=== PATIENT | female | born 2000 | race Caucasian/White ===

== ENCOUNTER 2024-03-11 15:02 | Emergency (ER) | payer BC, SELFPAY ==
[2024-03-11 15:04] VITALS: BP 153/104
[2024-03-11 15:26] LABS: % Basophils 0.7 % (0-2); % Eosinophils 6.6 % (0-6); % Immature Granulocytes 0.3 % (0-0.5); % Lymphocytes 25.1 % (20.5-51.1); % Monocytes 9.9 % (1.7-9.3); % Neutrophils 57.4 % (42.2-75.2); Absolute Basophils 0.1 10^3/uL (0-0.2); Absolute Eosinophils 0.5 10^3/uL (0-0.7); Absolute Lymphocytes 1.9 10^3/uL (1.2-3.4); Absolute Monocytes 0.8 10^3/uL (0.1-0.6); Absolute Neutrophils 4.4 10^3/uL (1.4-6.5); Hematocrit 40.4 % (37.0-47.0); Hemoglobin 13.2 g/dL (12.0-16.0); Mean Corp Hgb Conc. 32.7 g/dL (33.0-37.0); Mean Corpuscular Hgb 26.7 pg (27.0-31.0); Mean Corpuscular Volume 81.8 fL (81.0-99.0); Mean Platelet Volume 8.2 fL (7.4-10.4); Nucleated Red Blood Cells % 0 %; Platelet Count 356 10^3/uL (130-400); Red Blood Cell Count 4.94 10^6/uL (4.20-5.40); White Blood Cell Count 7.7 10^3/uL (4.8-10.8)
[2024-03-11 15:37] LABS: HCG, Serum Qualitative Screen Negative
[2024-03-11 15:38] LABS: ALT (SGPT) 22 U/L (0-35); AST (SGOT) 21 U/L (14-36); Albumin 4.5 g/dl (3.5-5.0); Alkaline Phosphatase 76 U/L (38-126); Blood Urea Nitrogen 16 mg/dl (7-17); Calcium 9.7 mg/dl (8.4-10.2); Carbon Dioxide 25 mmol/L (22-30); Chloride 101 mmol/L (98-107); Glucose 91 mg/dl (70-99); Lipase 144 U/L (23-300); Potassium 4.6 mmol/L (3.5-5.1); Sodium 134 mmol/L (135-145); Total Bilirubin 0.2 mg/dl (0.2-1.3); Total Protein 7.8 g/dl (6.3-8.2); eGFR > 60.00
--- NOTE | 2024-03-11 19:14 | ED.GENMED ---
History of Present Illness
General
Chief Complaint: Abdominal Symptoms
Source: patient
Exam Limitations: none
Time Seen by Provider: 03/11/24 18:41
History of Present Illness
History of Present Illness:
This is a 23 year old female that comes in with c/o abd cramping, nausea and diarrhea. States that this started about a week ago. States that 3 days ago he stools started to be bloody. State that this is bright red blood. States that she has also
had some reflux for the past week. States that she is nauseated and has diarrhea about 5 times in a day. Denies any fever, chills, chest pain, SOB, vomiting, headache, dizziness, urinary burning.
Past History
Past History
ED Past Medical History: None; Negative Asthma, HTN, Hypercholesterolemia or NIDDM
ED Past Surgical History: Other (Breast reduction)
Social History
Tobacco: Non-smoker
Alcohol: None
Personal: Single
Living: with family
Employment: Employed
Review of Systems
Review of Systems
All Other Systems: ROS reviewed and negative except as documented in HPI and ROS
Constitutional: Reports no symptoms; Denies fever or chills
EENT: Reports no symptoms
Respiratory: Reports no symptoms; Denies cough or trouble breathing
Cardiac: Reports no symptoms; Denies chest pain
ABD/GI: Reports abdominal pain, nausea, diarrhea and bloody stools; Denies vomiting
: Reports no symptoms; Denies dysuria, frequency or urgency
Musculoskeletal: Reports no symptoms
Skin: Reports no symptoms
Neurological: Reports no symptoms; Denies dizzy or headache
Psychiatric: Reports no symptoms
Phy Exam
General Physical Exam
General Presentation: well appearing and no apparent distress
General age: appears stated age
General Skin: warm and dry
General Habitus: normal
General Mental: alert
General Hydration: appears well hydrated
ENT Exam
ENT Exam: TM's normal, pharynx normal and neck supple
Eye Exam
Eye Exam: EOMI
Cardiovascular Exam
Cardiovascular Exam: regular rate/rhythm, no edema, no murmur and normal peripheral pulses
Pulmonary Exam
Pulmonary Exam: lungs clear, no respiratory distress, no rales, chest non tender, no crackles, no rhonchi, no wheezing and no cough
Gastrointestinal Exam
Gastrointestinal Exam: normal bowel sounds, soft, no organomegaly, no pulsatile mass, non distended and tender (Generalized tenderness with palpation)
Musculoskeletal Exam
Musculoskeletal Exam: full ROM and no edema
Skin Exam
Skin Exam: normal color, warm/dry, no rash and no petechia
Psychiatric Exam
Psychiatric Exam: normal mood/affect
Course
Orders/Labs/Results
Orders:
Orders
03/11/24 15:07
Test Result ONCE
03/11/24 15:11
Complete Blood Count/With Diff Urgent
Comprehensive Metabolic Panel Urgent
HCG, Serum Qualitative Screen Urgent
Lipase Urgent
03/11/24 19:13
CT Abd/pelvis W Iv Cont Urgent
Comment:
Reason For Exam: bloody stool abd discomfort.
03/11/24 19:14
0.9% Sodium Chloride 500 ml [Nss] 500 ml IV BOLUS
Ondansetron Injectable [Zofran] 4 mg IV NOW STA
03/11/24 19:15
Pantoprazole [Protonix IV] 40 mg IV NOW STA
Abnormal Lab Results
03/11/24
15:11
MCH 26.7 L pg
(27.0-31.0)
MCHC 32.7 L g/dL
(33.0-37.0)
Absolute Monos (auto) 0.8 H 10^3/uL
(0.1-0.6)
Monocytes % 9.9 H %
(1.7-9.3)
Eosinophils % 6.6 H %
(0-6)
Sodium 134 L mmol/L
(135-145)
03/11/24 15:11
03/11/24 15:11
Sodium slighlty low. Lipase normal at 144, HCG negative.
Vital Signs
Initial and Last Documented VS:
Initial Vital Signs
Temp Pulse Resp BP Pulse Ox
98.6 F 110 20 153/104 99
03/11/24 15:04 03/11/24 15:04 03/11/24 15:04 03/11/24 15:04 03/11/24 15:04
Last Documented Vital Signs
Temp Pulse Resp BP Pulse Ox
98.3 F 96 18 125/72 97
03/11/24 20:10 03/11/24 20:10 03/11/24 20:10 03/11/24 20:10 03/11/24 20:10
MDM/Problems Addressed
Differential Diagnosis Includes:
Colitis,
MDM/Problems Addressed:
This is a 23 year old female that comes in with c/o abd cramping and diarrhea. States that this has been going on for week and then about 3 days ago she started with bloody stool.
WIll get labs and CT scan. Will medicate for nausea, Reflux.
Back into see patient. Explained that she does have colitis. Will start patient on antibiotics. Patient has a PCP appointment on Thursday. Patient may also need to see the Gi Specialist for further evaluation. Patient to return with any concerns.
Chronic conditions affecting care:
NA
Acute Exacerbation and/or Progression of Chronic Illness:
NA
*Radiology
Radiology exam reviewed: radiology read reviewed (CT-There is colonic wall thickening with mucoal hyperenhancement most pronounced in the transverse colon, consistent with colitis. Normal appendix. )
*Pulse Oximetry
Patient hypoxic: no
*EKG
Interpreted by ED Provider?: NA
Rate: EKG- N/A
*Child Caregiver Interpretation
Rate: Child Caregiver- N/A
*Critical Care Note
Total Time (30-74mins, 75-104mins- exclusive of procedures): Not Applicable
ED Attending Note
-
Portions of this chart may have been created with voice recognition software.� Occasional wrong word or��sound alike� substitutions may have occurred due to the inherent limitations of voice recognition software.
Discharge Plan
Departure
Patient Disposition: Home (Routine Discharge)
Date of Disposition: 03/11/24
Time of Disposition: 21:30
Patient with high blood pressure during this ER visit?: No
Condition: Good
Covid-19: Not Applicable
Discharge Problem:
Colitis
Instructions: Colitis - Discharge instructions
Prescriptions:
New
amoxicillin-pot clavulanate 875-125 mg tablet
1 tab PO BID Qty: 19 0RF
No Action
prednisone 20 MG tablet
20 mg PO BID Qty: 6 0RF
oseltamivir [Tamiflu] 75 MG capsule
75 mg PO BID Qty: 10 0RF
Referrals:
Laureen Lux DO [Family Provider] - 03/14/24
Activity Restrictions/Additional Instructions:
As discussed, your blood work is normal. Your CT shows that you have Colitis. You have been started on an antibiotic and given your first dose here. A prescription has been sent to your pharmacy. Please take as directed. Follow up with the family
doctor as scheduled. IF YOU HAVE INCREASED OR CHANGING PAIN, OR YOU HAVE ANY OTHER CONCERNS PLEASE RETURN TO THE EMERGENCY ROOM.
Interventions
Interventions:
*Risk Screen - Suicide Last Done: 03/11/24 15:04
*General Assessment Last Done: 03/11/24 19:44
*Neglect/Abuse Screening Last Done: 03/11/24 19:44
*ED COVID-19 Vaccine History Last Done: 03/11/24 19:44
TK-Bkguwq-Ycjgogqgvf Assessment Last Done: 03/11/24 19:44
Discharge Date and Time
Print Language: BENINESE
[2024-03-11] MEDS: ZOFRAN 4 MG IV (19:31)
[2024-03-11] MEDS: PROTONIX IV 40 MG IV (19:31)
[2024-03-11] MEDS: NSS 500 IV (19:31)
[2024-03-11 20:10] VITALS: BP 125/72
[2024-03-11] MEDS: AUGMENTIN 875 MG/125 MG 1 TABLET PO (21:40)
== END 2024-03-11 21:59 | disposition home or self-care (01) ==
LOC: EMR 15:02
PROVIDERS: Emergency Medicine; EMERGENCY PHYSICIAN Emergency Medicine; FAMILY PHYSICIAN Family Medicine
DX: K52.9 Noninfective gastroenteritis and colitis, unspecified (principal)
CPT/HCPCS: 99285; 96374; 96375; 96361; 74177; 80053; 83690; 84703; 85025; Q9967

== ENCOUNTER 2024-03-24 06:25 | Day surgery (SDC) | payer BC, SELFPAY | END 2024-03-24 09:47 | LOC: GI 06:25 | PROVIDERS: ATTENDING PHYSICIAN Internal Medicine Gastroenterology | DX: R93.3 Abnormal findings on diagnostic imaging of other parts of digestive tract (principal); K52.9 Noninfective gastroenteritis and colitis, unspecified; K64.8 Other hemorrhoids; K62.5 Hemorrhage of anus and rectum; D12.0 Benign neoplasm of cecum; K52.89 Other specified noninfective gastroenteritis and colitis | CPT/HCPCS: 45385; 45380; 88305 ==

== ENCOUNTER → 2024-08-19 14:28 | Outpatient (REF) | payer BC, SELFPAY | LOC: HWRAD 14:28 | PROVIDERS: ATTENDING PHYSICIAN Internal Medicine Gastroenterology; FAMILY PHYSICIAN Family Medicine | DX: R79.9 Abnormal finding of blood chemistry, unspecified (principal) | CPT/HCPCS: 71046 ==